=== PATIENT | female | born 1960 | race Caucasian/White ===

== ENCOUNTER → 2017-02-10 | Outpatient (CLI) | payer BC ==
[~2017-02-10] MED LIST: NUTRTAB53 PO; NXM/40 PO; PHEN-775 PO; PRED1SUS3 OPL
--- NOTE | 2017-02-10 09:16 | DIAGNOSTIC IMAGING REPORT ---
ULTRASOUND ABDOMEN COMPLETE CLINICAL HISTORY: Upper abdominal pain. COMPARISON STUDY: No priors. TECHNIQUE: Real-time, grayscale, and color flow sonography of the abdomen was performed. Images are reviewed in the transverse and longitudinal planes. FINDINGS: Liver: The liver is mildly enlarged and demonstrates heterogeneously increased echotexture consistent with hepatic steatosis. There is no intrahepatic biliary ductal dilatation. The main portal vein is patent. Gallbladder: The gallbladder is normal in appearance. No gallstones are identified. There is no gallbladder wall thickening or pericholecystic fluid. A sonographic Yung's sign is reportedly absent. The common bile duct measures up to 0.5 cm in diameter. Pancreas: Visualized portions of the pancreatic head and body are normal in appearance. Spleen: The spleen is normal in size and echotexture, measuring 11.2 cm in length. Kidneys: The kidneys are normal in size and echotexture. There is no hydronephrosis. The right kidney measures 10.8 cm in length and the left kidney measures 12.0 cm in length. No shadowing calculi are identified. Abdominal vasculature: Visualized portions of the abdominal aorta are normal in appearance. Ascites: None. IMPRESSION: 1. No acute sonographic and ovale is identified. No gallstones are seen. 2. Hepatomegaly and hepatic steatosis. Electronically signed by: Randy Whiteside M.D. 02/10/2017 9:14 AM Dictated Date/Time: 02/10/2017 9:13 AM
== END | disposition home or self-care (01) ==
LOC: C.ULTR 08:38
PROVIDERS: ATTEND Family Medicine
DX: R10.10 Upper abdominal pain, unspecified (principal); R16.0 Hepatomegaly, not elsewhere classified; K76.0 Fatty (change of) liver, not elsewhere classified

== ENCOUNTER → 2017-02-24 | Outpatient (CLI) | payer BC ==
[~2017-02-24] MED LIST changes: +OPTIRAY 320 IV PRN
--- NOTE | 2017-02-24 09:45 | DIAGNOSTIC IMAGING REPORT ---
CT SCAN OF THE ABDOMEN AND PELVIS WITH IV CONTRAST CLINICAL HISTORY: Left lower quadrant abdominal pain. COMPARISON STUDY: Abdominal ultrasound dated 02/10/2017. TECHNIQUE: Following the IV administration of 93 cc of Optiray 320, CT scan of the abdomen and pelvis is performed from the lung bases to the proximal femora. Images are reviewed in the axial, sagittal, and coronal planes. IV contrast was administered without complication. Automated dose control exposure was utilized. CT DOSE: 1112.54 mGy.cm FINDINGS: Lung bases: The heart is normal in size and without pericardial effusion. No airspace consolidation or pleural effusion is seen. There is 11 mm pulmonary nodule at the left lung base seen on image #101. Liver: The contrast-enhanced liver is normal in size, contour, and attenuation. There is no intrahepatic biliary ductal dilatation. The hepatic veins and portal veins are patent. Gallbladder: Unremarkable. Spleen: The spleen is mildly enlarged measuring 14.4 cm in length. Pancreas: Unremarkable. Adrenal glands: Unremarkable. Kidneys: The contrast enhanced kidneys are normal in size and without hydronephrosis. The kidneys enhance symmetrically. A subcentimeter cortical hypodensity in the upper pole the right kidney likely represents a cyst but is too small for definitive characterization. Abdominal vasculature: The abdominal aorta is normal in course and caliber. Bowel: The small bowel and colon are normal in course and caliber. There is mild to moderate colonic fecal retention. The appendix is well-visualized and normal. Peritoneum: There is no intraperitoneal free air or abdominal ascites. There is a fat-containing umbilical hernia. Lymphadenopathy: None. Pelvic viscera: There is a 12 mm soft tissue nodule present along the right posterior wall of the bladder. This is best seen on axial image #437. There are calcified uterine fibroids. No adnexal lesion is seen. Skeletal structures: The skeletal structures are osteopenic. Mild lumbar sacral spondylosis is observed. Sclerotic change is noted in the sacroiliac joints. No lytic or blastic lesions are seen. IMPRESSION: 1. There are no acute infectious or inflammatory findings in the abdomen or pelvis. 2. There is a 12 mm intraluminal soft tissue nodule present along the right posterior wall of the bladder. Urothelial neoplasm is the diagnosis of exclusion. Follow-up with urology is recommended for consideration of cystoscopy. 3. There is an 11 mm indeterminant pulmonary nodule at the left lung base. Follow-up with a dedicated chest CT is recommended for further assessment. 4. Mild splenomegaly. 5. A calcified uterine fibroid is noted. Electronically signed by: Randy Whiteside M.D. 02/24/2017 9:43 AM Dictated Date/Time: 02/24/2017 9:35 AM
== END | disposition home or self-care (01) ==
LOC: C.CTS 09:02
PROVIDERS: ATTEND Family Medicine
DX: R10.10 Upper abdominal pain, unspecified (principal)

== ENCOUNTER → 2017-03-01 | Outpatient (CLI) | payer BC ==
[~2017-03-01] MED LIST changes: -OPTIRAY 320 IV PRN
--- NOTE | 2017-03-01 14:14 | DIAGNOSTIC IMAGING REPORT ---
CHEST CT WITHOUT CONTRAST CT DOSE: 547.69 mGy.cm HISTORY: Abnormal CT. Follow-up pulmonary nodule. TECHNIQUE: Multiaxial CT images of the chest were performed without contrast. COMPARISON: Abdomen and pelvis CT 02/24/2017. FINDINGS: There is a lobulated and slightly irregular nodule at the base of the left lower lobe on image 235 which measures 11 x 8 mm. The central airways are patent. No pneumothorax. No pleural effusions. There is also a 4 mm nodule at the base of the right lower lobe on image 175. No suspicious lytic or blastic osseous lesions. No mediastinal or hilar lymphadenopathy. Normal caliber thoracic ureter. The heart is normal in size. The visualized liver and spleen are unremarkable. IMPRESSION: 1. A lobulated and slightly irregular 11 x 8 mm nodule within the base of the left lower lobe. A primary bronchogenic malignancy remains the diagnosis of exclusion. PET CT is recommended for further evaluation. 2. A 4 mm nodule within the base the right lower lobe. Electronically signed by: He Stratton M.D. 03/01/2017 2:12 PM Dictated Date/Time: 03/01/2017 2:01 PM
== END | disposition home or self-care (01) ==
LOC: C.CTS 13:43
PROVIDERS: ATTEND Family Medicine
DX: R91.1 Solitary pulmonary nodule (principal)

== ENCOUNTER 2017-03-03 10:57 | Day surgery (SDC) | payer BC ==
[2017-03-01 11:03] VITALS: BMI 36.0
[~2017-03-03] VITALS: Ht 160 cm; Wt 93.6 kg
[~2017-03-03 10:57] MED LIST changes: +CEFAZOLIN 2000 MG/60 ML D5W IV SCH; +LACTATED RINGER'S 1000ML 1,000 ML IV SCH; -PHEN-775 PO; -PRED1SUS3 OPL
[2017-03-03 11:29] VITALS: BP 129/81; PULSE 83; TEMP 36.6; O2SAT 99; Ht 160 cm; Wt 93.6 kg
--- NOTE | 2017-03-03 12:35 | History & Physical Bridge Note ---
H&P Re-Evaluation Bridge Note: I have examined the patient, reviewed the History & Physical and in the interval since the performance of the History & Physical I have noted the following changes of clinical significance: No changes noted
[2017-03-03] MEDS ORDERED: HYDROmorphone INJ 1 MG/ML SYR IV PRN (13:15)
[2017-03-03] MEDS ORDERED: ATROPINE SULFATE 0.1 MG/ML 5ML SYR IV PRN (13:15)
[2017-03-03] MEDS ORDERED: FENTANYL CITRATE INJ 50 MCG/1 ML 2 ML VIAL IV PRN (13:15)
[2017-03-03] MEDS ORDERED: LABETALOL HCL IV 5 MG/ML 20ML IV PRN (13:15)
[2017-03-03] MEDS ORDERED: EpHEDrine SULFATE INJ 50 MG/ML AMP IV PRN (13:15)
[2017-03-03] MEDS ORDERED: ONDANSETRON INJ 2 MG/ML 2 ML VIAL IV PRN (13:15)
[2017-03-03] MEDS ORDERED: MEPERIDINE HCL 25 MG/ML CARP IV PRN (13:15)
[2017-03-03] MEDS ORDERED: MIDAZOLAM HCL 1 MG/ML 2ML VIAL ONE (14:00)
[2017-03-03] MEDS ORDERED: FENTANYL CITRATE INJ 50 MCG/1 ML 2 ML VIAL ONE ×2 (14:00→14:17)
[2017-03-03] MEDS ORDERED: BELLADONNA/OPIUM SUPP 60 MG SUPP PR ONE (14:29)
[2017-03-03] MEDS ORDERED: PROPOFOL IV EMULSION 10 MG/ML 20 ML VIAL IV ONE (14:32)
[2017-03-03] MEDS ORDERED: DiphenhydrAMINE HCL 50 MG/ML VIAL ONE (14:32)
[2017-03-03] MEDS ORDERED: DEXAMETHASONE SOD INJ 4 MG/ML VIAL ONE (14:32)
[2017-03-03] MEDS ORDERED: ONDANSETRON INJ 2 MG/ML 2 ML VIAL ONE (14:32)
[2017-03-03] MEDS ORDERED: METOCLOPRAMIDE HCL INJ 5 MG/ML 2 ML VIAL ONE (14:32)
[2017-03-03] MEDS ORDERED: LIDOCAINE HCL 2% 2 ML VIAL (20MG/ML) ONE (14:32)
--- NOTE | 2017-03-03 14:38 | [facility] Operative Report ---
Operative Report Operative Date Mar 03, 2017. 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 Laura Juarez Academic Program Specialist Surgeon(s) None Estimated Blood Loss 0ML Findings nodular yellow papillary tumor just posterior to right UO Specimens A. Unusual Papillary Right Trigone Tumor Drains none Anesthesia LMA Complication(s) None Disposition Recovery Room / PACU Indications bladder tumor noted at office cysto. we plan to resect Description of Procedure Patient was given general LMA anesthesia and placed in lithotomy position. Her genitals were prepped and draped in sterile fashion. Time out held with team. I placed a 26 fr rigid resectoscope to bladder. The urethra is unremarkable. The UOs are in normal location. There is a 30mm nodular yellow papillary tumor just posterolateral to the right UO. The rest of bladder is normal. I used the thin loop and bipolar system to resect the tumor and its base. There was very little bleeding. I rinsed out tumor chips and the irrigated the bladder with about 2liters of saline. I left bladder empty and concluded case. I placed a belladonna and opium suppository for post-op pain. She transferred to recovery under my escort, in stable condition. Plan: Home today Pyridium for dysuria x 3 days ASA 2 clean contaminated case ancef antibiotic ignition specialist I attest to the content of the Intraoperative Record and any orders documented therein. Any exceptions are noted below.
[2017-03-03] MEDS ORDERED: PHEN-775 PO (14:39)
--- NOTE | 2017-03-03 14:41 | Discharge Instructions ---
Discharge Instructions Date of Service Mar 03, 2017. Admission Reason for Admission: Bladder Mass Discharge Discharge Diagnosis / Problem: bladder mass Discharge Goals Goal(s): Improve disease control Activity Recommendations Activity Limitations: resume your previous activity Lifting Limitations: none Exercise/Sports Limitations: as tolerated May Resume Sexual Activity: when tolerated Shower/Bathe: no limitations Driving or Machine Use: resume 1 day after discharge . Instructions / Follow-Up Instructions / Follow-Up urine may be bloody for a few weeks on and off drink extra fluids when urine is bloody use tylenol or ibuprofen for pain use pyridium for burning with urination. Discharge Diet Recommended Diet: Regular Diet Fluid Restriction: None Procedures Procedures Performed: Transurethral Resection Bladder Tumor Pending Studies Studies pending at discharge: yes List of pending studies: pathology Medical Emergencies . Who to Call and When: Medical Emergencies: If at any time you feel your situation is an emergency, please call 911 immediately. . Non-Emergent Contact Non-Emergency issues call your: Urologist ([phone]) Call Non-Emergent contact if: temperature is above 100.5 . . "Provider Documentation" section prepared by Laura Juarez. . VTE Core Measure Inpt VTE Proph given/why not?: SCD's [place] Drug Monitoring Program Search Results: patient reviewed within database, no issues identified
[2017-03-03] MEDS ORDERED: EpHEDrine SULFATE INJ 50 MG/ML AMP ONE (14:47)
[2017-03-03 15:20] VITALS: BP 131/71; PULSE 67; TEMP 36.4; O2SAT 97
[2017-03-03 15:40] VITALS: BP 135/78; PULSE 72; O2SAT 97
[2017-03-03 16:15] VITALS: BP 129/79; PULSE 58; TEMP 36.4; O2SAT 100
== END 2017-03-03 16:25 | disposition home or self-care (01) ==
LOC: C.ACU 10:57
PROVIDERS: ATTEND Urology
DX: D41.4 Neoplasm of uncertain behavior of bladder (principal)

== ENCOUNTER → 2017-03-10 | Outpatient (CLI) | payer BC ==
[~2017-03-10] MED LIST changes: -CEFAZOLIN 2000 MG/60 ML D5W IV SCH; -LACTATED RINGER'S 1000ML 1,000 ML IV SCH; +PHEN-775 PO
--- NOTE | 2017-03-10 11:17 | DIAGNOSTIC IMAGING REPORT ---
PET/CT CLINICAL HISTORY: Pulmonary nodule. COMPARISON STUDY: Chest CT dated 03/01/[address] dated 02/24/2017. TECHNIQUE: One hour following the IV administration of 15.34 mCi of F-18 FDG, PET/CT examination was performed from the orbital meatal line through the bony pelvis. Noncontrast CT is performed for the purposes of anatomic correlation and attenuation correction. Note that this does not reflect a diagnostic CT examination. Images were reviewed on a separate [employer] independent workstation. Fused images were obtained. Standard uptake values reported are maximum values within the region of interest expressed an gm/mL. FINDINGS: PET FINDINGS: Head and neck: There is expected physiologic activity within the visualized brain parenchyma at the skull base and the salivary glands. Thorax: Evaluation of the thorax demonstrates expected physiologic myocardial activity. Again seen is an 11 mm nodule at the left lung base on image #107. This was not demonstrably FDG avid. No additional pulmonary nodules are clearly identified. Abdomen and pelvis: There is expected activity within the liver, spleen, kidneys, renal collecting system, and bladder. Low-level bowel activity is likely within physical limits. Unenhanced CT images: Partially imaged brain parenchyma at the skull base is within normal limits. The bony orbits are intact. Orbital contents are normal in appearance noting bilateral ocular lens implants. The visualized paranasal sinuses and the mastoid air cells appear clear. The salivary and thyroid glands are within normal limits. There is no cervical lymphadenopathy. The heart is normal in size and without pericardial effusion. No airspace consolidation or pleural effusion is seen. There is dependent atelectasis. See above under PET findings for discussion of pulmonary nodules. The unenhanced liver, gallbladder, pancreas, adrenal glands, and kidneys are grossly normal. The spleen is top normal in size. The abdominal aorta is normal in course and caliber. There is no bowel obstruction. A normal appendix is identified. No intraperitoneal free air or abdominal ascites is seen. There is no abdominal, pelvic, or retroperitoneal lymphadenopathy. Calcified uterine fibroids are noted. The bladder is decompressed and not well assessed. No lytic or blastic bony lesions are seen. IMPRESSION: 1. Again seen is an 11 mm pulmonary nodule at the left lung base. This was not demonstrably FDG avid and remains indeterminant. At a minimum, short-term CT follow-up is recommend. Tissue sampling will likely be required for definitive characterization. 2. No additional pulmonary nodules are identified. 3. The bladder was decompressed and not well assessed. The suspected bladder lesion seen by CT on 02/24/2017 was not apparent by on today's PET examination but remains concerning. Follow-up with cystoscopy is recommended for further interrogation. Electronically signed by: Randy Whiteside M.D. 03/10/2017 11:15 AM Dictated Date/Time: 03/10/2017 11:04 AM
== END ==
LOC: C.PET 08:08
PROVIDERS: ATTEND Family Medicine
DX: R91.1 Solitary pulmonary nodule (principal)